=== PATIENT | female | born 1985 | race African-American/Black ===

== ENCOUNTER 2017-10-12 16:46 | Emergency (ER) | payer OTHER ==
[~2017-10-12] VITALS: Ht 162.6 cm; Wt 80.3 kg
[~2017-10-12 16:46] MED LIST: NOHOMEMEDS
[2017-10-12 17:27] LABS: HEMATOCRIT 39.2 % (36.0-46.0); MCH 22.8 PG (29.0-34.0); MCHC 31.1 G/DL (30.0-36.0); MCV 73.3 FL (83-99); PLATELET COUNT 323 K/uL (156-360); RBC DIS.WIDTH-CV 13.2 % (11.8-14.6); RBC DIS.WIDTH-SD 34.3 % (39-53); RED BLOOD COUNT 5.35 M/uL (3.80-5.20); WHITE BLOOD COUNT 7.7 K/uL (4.1-10.2)
[2017-10-12 17:29] LABS: CHLORIDE 105 mEq/L (99-109); SODIUM 137 mEq/L (136-147)
[2017-10-12 17:30] LABS: GLUCOSE 99 mg/dL (70-99)
[2017-10-12 17:32] LABS: ANION GAP 9 MEQ/L (2-14)
[2017-10-12 17:34] LABS: GFR ESTIMATE (CALCULATED) > 59 mL/min/
[2017-10-12 17:35] LABS: UREA NITROGEN (BUN) 8 mg/dL (9-23)
[2017-10-12 17:43] LABS: QUANTITATIVE HCG < 4.0 MIU/ML
[2017-10-12] MEDS ORDERED: MOTRIN600 MG PO (18:44)
[2017-10-12 18:52] VITALS: BP 109/74
== END 2017-10-12 18:53 | disposition home or self-care (01) ==
LOC: EME 16:46
DX: S39.012A Strain of muscle, fascia and tendon of lower back, initial encounter (principal); R10.9 Unspecified abdominal pain; Z88.2 Allergy status to sulfonamides
CPT/HCPCS: 74176; 80048; 81003; 84702; 85027; 99281; 99284